=== PATIENT | male | born 1995 | race Caucasian/White ===

== ENCOUNTER 2025-07-17 13:02 | Emergency (ER) | payer SELFPAY ==
[~2025-07-17] VITALS: Ht 175.2 cm; Wt 79.4 kg
[2025-07-17] MEDS ORDERED: Lidocaine Hydrochloride 30 ML VIAL IM ONE (13:30)
[2025-07-17] MEDS ORDERED: CEPHALEXIN500 M1 PO (14:21)
[2025-07-17] MEDS ORDERED: Tdap Vaccine 0.5 ML SYR (Adult Vaccine) IM ONE (15:15)
== END 2025-07-17 15:16 | disposition home or self-care (01) ==
LOC: ED 13:02
DX: S61.212A Laceration without foreign body of right middle finger without damage to nail, initial encounter (principal); S61.214A Laceration without foreign body of right ring finger without damage to nail, initial encounter; W45.8XXA Other foreign body or object entering through skin, initial encounter; Y93.89 Activity, other specified; Y92.89 Other specified places as the place of occurrence of the external cause; Y99.8 Other external cause status